=== PATIENT | male | born 1960 | race Caucasian/White ===

== ENCOUNTER → 2017-02-24 | Outpatient (CLI) | payer MEDICARE ==
[~2017-02-24] MED LIST: ALBUTEROL17 GM INH; AMITRIPTYLINE H50 MG PO; DEPAKOTE ER PO; FLOMAX0.4 M1 DOB; GABAPENTIN300 M2 PO; GABAPENTIN300 MG PO; HUMALOG100 U/M1 SUBQ; KLOR-CON PO; LANTUS100 U/ML SUBQ; LASIX PO; LISINOPRIL PO; LISINOPRIL20 MG PO; LOMOTIL WHITE2.5 M1 PO; METFORMIN PO; NASONEX17 GM; NEURONTIN600 MG PO; NEXIUM PO; OXYCODONE HCL30 MG PO; PAXIL40 MG PO; TOPAMAX PO; XANAX1 MG PO
--- NOTE | ~2017-02-24 | US37 ---
[facility] A Service of [facility] & [facility] RADIOLOGY TEXT RESULTS PATIENT: ERNESTO SANDHU LOCATION: CNIV : 64 UNIT #: [id number] AGE: [address]: Greta Gaona MD SEX: M ORDER DR: [id number] [facility] [address] [place], [place] [address] [id number] O MR#: [id number] #: [id number] NAME: ERNESTO SANDHU : 1960 SEX: M STUDY DATE/TIME: 02/24/2017 15:07 UNIT: CNIV ROOM: STUDY DESCRIPTION: US Carotid W/Doppler Bilateral Attending Physician: Greta Gaona M.D. Referring Physician: Greta Gaona M.D. Ordering Physician: Greta Gaona M.D. Primary Care Physician: Greta Gaona M.D. MEDICAL IMAGING REPORT This report is preliminary unless electronic signature is present DATE OF EXAM 02/24/2017 EXAM Bilateral carotid duplex. CLINICAL HISTORY Dizziness. FINDINGS There is patent flow seen throughout the right common carotid, internal carotid and external carotid arteries. There is some mild irregular appearing, smooth plaque seen in the common carotid artery. At the carotid bifurcations, there are some heterogeneous, irregular, echogenic plaque that is seen, extending to the proximal aspect of the internal carotid artery. The right common carotid artery peak velocity is 104 cm/sec. The right internal carotid artery peak systolic over end-diastolic velocities are: Proximal 96/20 cm/sec, mid 90/29 cm/sec, distal 82/28 cm/sec. The right external carotid artery has a peak velocity of 115 cm/sec, and vertebral artery 43 cm/sec. The right ICA:CCA ratio is 0.9. There is patent flow seen throughout the left common carotid, internal carotid artery and external carotid arteries. There is some mild, smooth-appearing, homogeneous plaque seen in the left common carotid artery. At the left carotid bifurcation, there are some irregular, heterogeneous plaque that was seen extending into the internal carotid artery. The left common carotid artery peak velocity is 83 cm/sec. The left internal carotid artery peak systolic over end-diastolic velocities are: Proximal 55/21 cm/sec, mid 65/20 cm/sec, distal 84/27 cm/sec. The left external carotid artery has a peak velocity of 85 cm/sec, vertebral artery 36 cm/sec. The left ICA:CCA ratio is 1.0. [facility] A Service of [facility] & [facility] RADIOLOGY TEXT RESULTS PATIENT: ERNESTO SANDHU LOCATION: CNIV : 64 UNIT #: [id number] AGE: [address]: Greta Gaona MD SEX: M ORDER DR: IMPRESSION 1. The right coronary artery has mild atherosclerosis, which is not hemodynamically significant by duplex criteria (less than 50%). 2. The left carotid artery has mild atherosclerosis, which is not hemodynamically significant by duplex criteria (less than 50%). 3. Vertebral flow is antegrade bilaterally. Dictated by... Zhang Leal M.D. THIS IS AN ELECTRONICALLY VERIFIED REPORT Zhang Leal M.D. at 02/25/2017 1:49 PM Jon TD: 02/24/2017 16:48 JOB #: [id number] MEDICAL IMAGING REPORT Page 1 of 1 COPY
== END | disposition home or self-care (01) ==
LOC: CNIV 02-23 09:00
DX: R42 Dizziness and giddiness (principal); I65.23 Occlusion and stenosis of bilateral carotid arteries
CPT/HCPCS: 93880

== ENCOUNTER 2017-04-21 00:33 | Emergency (ER) | payer MEDICARE | END 2017-04-21 01:02 | disposition left against medical advice (07) | LOC: CED 00:33 | DX: Z53.21 Procedure and treatment not carried out due to patient leaving prior to being seen by health care provider (principal) | CPT/HCPCS: 82947 ==